=== PATIENT | male | born 1955 | race Caucasian/White ===

== ENCOUNTER 2016-11-10 08:47 | Emergency (ER) | payer OTHER ==
[~2016-11-10] VITALS: Ht 188 cm; Wt 99.8 kg
--- NOTE | ~2016-11-10 | EKG ---
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: : 1955 Requested By: Peyton Coyle Order Number: [id number] MD: Kaleb Watters Measurements Intervals [place] Rate: 68 P: 35 [place]: 124 QRS: 32 QRSD: 99 T: 6 QT: 402 QTc: 428 Interpretive Statements Sinus rhythm Abnormal R-wave progression, early transition Minimal ST depression, anterolateral leads No previous ECG available for comparison Electronically Signed On 11-10-2016 14:13:39 SHIRT FOLDER by Kaleb Watters [email or web address] <ELECTRONICALLY SIGNED> By: Kaleb Watters MD 11/10/16 1413 D: 01/848 8 Kaleb Watters MD /ROMY
[~2016-11-10 08:47] MED LIST: AMITRIPTYLINE H25 M2 PO; ASPIRIN EC81 M1 PO; BACTRIM DS TAB1 EACH PO; CLONAZEPAM 1 MG1 M1 PO; CRESTOR20 MG PO; FLEXERIL PO; KEFLEX500 MG PO; LISINOPRIL10 MG PO; MOBIC15 MG PO; NORCO 5-325 TA1 EACH PO; NORFLEX100 MG PO; PANTOPRAZOLE SO40 M1 PO; PERCOCET 5-3251 EACH PO; PRADAXA150 MG PO; PRADAXA75 MG PO; PROTONIX40 M1 PO; PROZAC20 MG PO; ROBAXIN500 MG PO; SILVADENE20 GM TP; SIMVASTATIN10 MG PO; SORINE 80 MG TA80 M1 PO; TRAMADOL 50 MG50 MG PO; VICOPROFEN 2001 EACH PO; XANAX 0.5 MG0.5 M1 PO; XANAX 0.5 MG0.5 MG PO; XANAX 1 MG TABLE1 MG PO; XANAX XR1 MG PO; ZESTRIL; ZIAC PO; [UNRECOGNIZED DRUG - REMARK]
[2016-11-10] MEDS ORDERED: SOTALOL AF120 MG PO (09:08)
[2016-11-10] MEDS ORDERED: PRAVASTATIN SOD10 MG PO (09:08)
[2016-11-10 09:20] LABS: ABSOLUTE NEUTROPHILS 9.2 thou/uL (1.4-8.2); BASOPHILS 0.9 % (0.0-2.0); EOSINOPHILS 0.8 % (0.0-3.0); HEMATOCRIT 40.6 % (42.0-52.0); HEMOGLOBIN 14.1 gm/dL (14.0-18.0); LYMPHOCYTES 17.6 % (24.0-44.0); MCH 29.1 pg (26.0-34.0); MCHC 34.7 % (28.0-37.0); PLATELET COUNT 410 thou/uL (150-400); POLYS 74.7 % (36.0-66.0); RBC 4.84 mil/uL (4.50-6.00); RDW 13.7 % (10.5-14.5); WBC 12.3 thou/uL (4.0-11.0)
[2016-11-10 09:23] LABS: MANUAL DIFF NO
[2016-11-10 09:32] LABS: ANION GAP 13 mmol/L (7-16); BUN 10 mg/dL (7-18); CALCIUM 9.7 mg/dL (8.5-10.1); CHLORIDE 98 mmol/L (98-107); CO2 24 mmol/L (21-32); GLUCOSE 200 mg/dL (70-99); POTASSIUM 3.4 mmol/L (3.5-5.1); SODIUM 135 mmol/L (136-145)
[2016-11-10 09:34] LABS: APTT 29.2 Seconds (24.5-32.8); INR 1.1; PROTIME 11.1 Seconds (9.3-11.4)
[2016-11-10 09:41] LABS: ALBUMIN 4.3 g/dL (3.4-5.0); ALKALINE PHOSPHATASE 65 U/L (46-116); DIRECT BILIRUBIN 0.2 mg/dL (<0.1-0.3); SGOT 18 U/L (15-37); SGPT 24 U/L (30-65); TOTAL BILIRUBIN 1.1 mg/dL (<0.1-1.0); TOTAL PROTEIN 7.7 g/dL (6.4-8.2); TROPONIN-I < 0.04 ng/mL (<0.04-0.07)
[2016-11-10] MEDS ORDERED: IBUPROFEN 600600 M1 PO (10:35)
[2016-11-10] MEDS ORDERED: CLONAZEPAM2 MG PO (12:27)
== END 2016-11-10 12:57 | disposition home or self-care (01) ==
LOC: ER 08:47
PROVIDERS: Emergency Medicine
DX: R07.89 Other chest pain (principal); R10.9 Unspecified abdominal pain; F41.9 Anxiety disorder, unspecified; I10 Essential (primary) hypertension; Z86.73 Personal history of transient ischemic attack (TIA), and cerebral infarction without residual deficits; F10.99 Alcohol use, unspecified with unspecified alcohol-induced disorder

== ENCOUNTER 2017-06-06 08:05 | Emergency (ER) | payer OTHER ==
[~2017-06-06] VITALS: Ht 188 cm; Wt 96.2 kg
[~2017-06-06 08:05] MED LIST changes: +CLONAZEPAM2 MG PO; +IBUPROFEN 600600 M1 PO; +PRAVASTATIN SOD10 MG PO; +SOTALOL AF120 MG PO
[2017-06-06] MEDS ORDERED: PREDNISONE 10 M10 MG PO (08:43)
[2017-06-06] MEDS ORDERED: KEFLEX500 MG PO (08:43)
== END 2017-06-06 08:47 | disposition home or self-care (01) ==
LOC: ER 08:05
DX: L25.8 Unspecified contact dermatitis due to other agents (principal); I10 Essential (primary) hypertension; I48.91 Unspecified atrial fibrillation; F10.99 Alcohol use, unspecified with unspecified alcohol-induced disorder; Z86.73 Personal history of transient ischemic attack (TIA), and cerebral infarction without residual deficits; Z98.890 Other specified postprocedural states; Z91.040 Latex allergy status

== ENCOUNTER 2017-08-15 14:08 | Emergency (ER) | payer OTHER ==
[~2017-08-15] VITALS: Ht 188 cm; Wt 99.8 kg
[~2017-08-15 14:08] MED LIST changes: +PREDNISONE 10 M10 MG PO
[2017-08-15] MEDS ORDERED: VALIUM5 MG PO (15:26)
[2017-08-15] MEDS ORDERED: NORCO 7.5-3251 EACH PO (15:26)
[2017-08-15] MEDS ORDERED: PREDNISONE 20 M20 MG PO (15:26)
== END 2017-08-15 15:37 | disposition home or self-care (01) ==
LOC: ER 14:08
DX: M46.1 Sacroiliitis, not elsewhere classified (principal); I10 Essential (primary) hypertension; I48.91 Unspecified atrial fibrillation; F10.99 Alcohol use, unspecified with unspecified alcohol-induced disorder; Z86.73 Personal history of transient ischemic attack (TIA), and cerebral infarction without residual deficits; Z91.040 Latex allergy status; Z87.891 Personal history of nicotine dependence

== ENCOUNTER 2017-10-25 10:42 | Emergency (ER) | payer OTHER ==
[~2017-10-25] VITALS: Ht 188 cm; Wt 98.0 kg
[~2017-10-25 10:42] MED LIST changes: +NORCO 7.5-3251 EACH PO; +PREDNISONE 20 M20 MG PO; +VALIUM5 MG PO
[2017-10-25] MEDS ORDERED: HYDROCODONE-AP1 EAC6 PO (12:08)
[2017-10-25 12:19] VITALS: BP 180/80
[2018-02-18] MEDS ORDERED: SENNA-DOCUSATE1 EACH PO (09:26)
== END 2017-10-25 12:19 | disposition home or self-care (01) ==
LOC: ER 10:42
DX: M54.42 Lumbago with sciatica, left side (principal); I10 Essential (primary) hypertension; I48.91 Unspecified atrial fibrillation; Z86.73 Personal history of transient ischemic attack (TIA), and cerebral infarction without residual deficits; Z90.49 Acquired absence of other specified parts of digestive tract

== ENCOUNTER 2017-11-03 08:03 | Emergency (ER) | payer OTHER ==
[~2017-11-03] VITALS: Ht 188 cm; Wt 98.0 kg
--- NOTE | ~2017-11-03 | EKG ---
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
[~2017-11-03 08:03] MED LIST changes: +HYDROCODONE-AP1 EAC6 PO
[2017-11-03 08:38] LABS: HEMATOCRIT 40.1 % (42.0-52.0); HEMOGLOBIN 14.2 gm/dL (14.0-18.0); MCH 29.4 pg (26.0-34.0); MCHC 35.5 g/dL (28.0-37.0); MCV 82.7 fL (80.0-100.0); RBC 4.84 mil/uL (4.50-6.00); RDW 13.9 % (10.5-14.5); WBC 6.4 thou/uL (4.0-11.0)
[2017-11-03 08:40] LABS: CALCIUM 9.1 mg/dL (8.5-10.1); CREATININE 0.8 mg/dL (0.7-1.3); POTASSIUM 3.7 mmol/L (3.5-5.1)
[2017-11-03] MEDS ORDERED: NYAMYC15 GM TOP (11:16)
[2017-11-03 11:19] VITALS: BP 134/96
[2017-11-03] MEDS ORDERED: CLONAZEPAM 1 MG1 M1 PO (11:26)
[2017-11-03] MEDS ORDERED: DOXYCYCLINE 10100 MG PO (11:26)
[2018-02-18] MEDS ORDERED: SENNA-DOCUSATE1 EACH PO (09:26)
== END 2017-11-03 11:42 | disposition home or self-care (01) ==
LOC: ER 08:03
PROVIDERS: Emergency Medicine
DX: J06.9 Acute upper respiratory infection, unspecified (principal); E87.1 Hypo-osmolality and hyponatremia; R19.7 Diarrhea, unspecified; B35.6 Tinea cruris; I10 Essential (primary) hypertension; G89.29 Other chronic pain; M54.9 Dorsalgia, unspecified; I48.91 Unspecified atrial fibrillation; Z90.49 Acquired absence of other specified parts of digestive tract; Z91.040 Latex allergy status; Z87.891 Personal history of nicotine dependence

== ENCOUNTER 2017-11-08 13:17 | Emergency (ER) | payer OTHER ==
[~2017-11-08] VITALS: Ht 188 cm; Wt 98.0 kg
--- NOTE | ~2017-11-08 | EKG ---
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[facility] : 1955 Requested By: Peyton Coyle Order Number: [id number] MD: Kaleb Watters Measurements Intervals [place] Rate: 69 P: 4 ID: 148 QRS: 10 QRSD: 95 T: 1 QT: 405 QTc: 434 Interpretive Statements Sinus rhythm Abnormal R-wave progression, early transition Compared to ECG 11/03/2017 09:30:59 No significant changes Electronically Signed On 11-08-2017 16:08:34 SIDE PIECE COVERER by Kaleb Watters [email or web address] <ELECTRONICALLY SIGNED> By: Kaleb Watters MD 11/08/17 1608 1401 00 Kaleb Watters MD /ROMY
[~2017-11-08 13:17] MED LIST changes: +DOXYCYCLINE 10100 MG PO; +NYAMYC15 GM TOP
[2017-11-08 14:52] LABS: ABSOLUTE NEUTROPHILS 5.5 thou/uL (1.4-8.2); BASOPHILS 1.4 % (0.0-2.0); EOSINOPHILS 1.7 % (0.0-3.0); HEMATOCRIT 39.9 % (42.0-52.0); HEMOGLOBIN 14.2 gm/dL (14.0-18.0); LYMPHOCYTES 29.7 % (24.0-44.0); MCH 29.5 pg (26.0-34.0); MCHC 35.6 g/dL (28.0-37.0); MCV 82.9 fL (80.0-100.0); MONOCYTES 8.2 % (1.0-8.0); PLATELET COUNT 524 thou/uL (150-400); RBC 4.82 mil/uL (4.50-6.00); RDW 13.6 % (10.5-14.5); WBC 9.4 thou/uL (4.0-11.0)
[2017-11-08 15:01] LABS: ANION GAP 9 mmol/L (7-16); BUN 11 mg/dL (7-18); CALCIUM 9.6 mg/dL (8.5-10.1); CHLORIDE 96 mmol/L (98-107); CO2 26 mmol/L (21-32); CREATININE 0.7 mg/dL (0.7-1.3); GLUCOSE 103 mg/dL (74-106); SODIUM 131 mmol/L (136-145)
[2017-11-08 15:09] LABS: TROPONIN-I < 0.04 ng/mL (<0.06)
[2017-11-08] MEDS ORDERED: ANTIVERT25 MG PO (15:13)
[2017-11-08 16:42] VITALS: BP 129/87
[2018-02-18] MEDS ORDERED: SENNA-DOCUSATE1 EACH PO (09:26)
== END 2017-11-08 16:42 | disposition home or self-care (01) ==
LOC: ER 13:17
PROVIDERS: Emergency Medicine
DX: R42 Dizziness and giddiness (principal); I10 Essential (primary) hypertension; I48.91 Unspecified atrial fibrillation; G89.29 Other chronic pain; M54.5 Low back pain; Z90.49 Acquired absence of other specified parts of digestive tract; Z87.891 Personal history of nicotine dependence; Z91.040 Latex allergy status

== ENCOUNTER 2017-12-21 06:51 | Emergency (ER) | payer OTHER ==
[~2017-12-21] VITALS: Ht 188 cm; Wt 97.5 kg
--- NOTE | ~2017-12-21 | EKG ---
[place] [address] [facility] 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 12/21/17 0819 0704 3 Reginald Liu MD, FACC /EPI
[~2017-12-21 06:51] MED LIST changes: +ANTIVERT25 MG PO
[2017-12-21 07:00] VITALS: BP 149/85
[2017-12-21 07:28] LABS: ABSOLUTE NEUTROPHILS 9.4 thou/uL (1.4-8.2); EOSINOPHILS 0.6 % (0.0-3.0); HEMATOCRIT 39.6 % (42.0-52.0); HEMOGLOBIN 13.8 gm/dL (14.0-18.0); LYMPHOCYTES 18.5 % (24.0-44.0); MCH 28.9 pg (26.0-34.0); MCHC 34.8 g/dL (28.0-37.0); MCV 83.1 fL (80.0-100.0); MONOCYTES 5.2 % (1.0-8.0); PLATELET COUNT 355 thou/uL (150-400); POLYS 74.7 % (36.0-66.0); RBC 4.77 mil/uL (4.50-6.00); RDW 14.5 % (10.5-14.5); WBC 12.6 thou/uL (4.0-11.0)
[2017-12-21 07:40] LABS: ANION GAP 12 mmol/L (7-16); BUN 11 mg/dL (7-18); CALCIUM 9.5 mg/dL (8.5-10.1); CHLORIDE 100 mmol/L (98-107); CO2 24 mmol/L (21-32); CREATININE 0.8 mg/dL (0.7-1.3); GLUCOSE 142 mg/dL (74-106); POTASSIUM 3.2 mmol/L (3.5-5.1); SODIUM 136 mmol/L (136-145)
[2017-12-21 07:49] LABS: TROPONIN-I < 0.04 ng/mL (<0.06)
[2017-12-21] MEDS ORDERED: CLONAZEPAM 1 MG1 M1 PO (09:54)
[2017-12-21] MEDS ORDERED: PROAIR HFA8.5 GM INH (10:10)
[2018-02-18] MEDS ORDERED: SENNA-DOCUSATE1 EACH PO (09:26)
== END 2017-12-21 10:16 | disposition home or self-care (01) ==
LOC: ER 06:51
PROVIDERS: Emergency Medicine
DX: J06.9 Acute upper respiratory infection, unspecified (principal); R07.9 Chest pain, unspecified; F41.9 Anxiety disorder, unspecified; I10 Essential (primary) hypertension; I48.91 Unspecified atrial fibrillation; Z91.040 Latex allergy status

== ENCOUNTER → 2020-08-16 | Outpatient (CLI) | payer OTHER ==
[~2020-08-16] MED LIST changes: +PROAIR HFA8.5 GM INH; +SENNA-DOCUSATE1 EACH PO
== END ==
LOC: SJCVC 12:52
PROVIDERS: ATTEND Internal Medicine
DX: I10 Essential (primary) hypertension (principal); E78.5 Hyperlipidemia, unspecified; Z79.899 Other long term (current) drug therapy; Z87.891 Personal history of nicotine dependence

== ENCOUNTER → 2021-03-03 | Outpatient (CLI) | payer OTHER | LOC: SJCVCIMAG 02-16 10:20 | PROVIDERS: ATTEND Internal Medicine | DX: I48.91 Unspecified atrial fibrillation (principal); E78.00 Pure hypercholesterolemia, unspecified; E78.5 Hyperlipidemia, unspecified; I51.89 Other ill-defined heart diseases; K21.9 Gastro-esophageal reflux disease without esophagitis; G47.30 Sleep apnea, unspecified; I34.0 Nonrheumatic mitral (valve) insufficiency; I10 Essential (primary) hypertension; K46.9 Unspecified abdominal hernia without obstruction or gangrene; Z86.73 Personal history of transient ischemic attack (TIA), and cerebral infarction without residual deficits; Z87.891 Personal history of nicotine dependence; Z72.89 Other problems related to lifestyle; Z88.0 Allergy status to penicillin; Z91.040 Latex allergy status; Z79.899 Other long term (current) drug therapy ==